=== PATIENT | male | born 1960 | race Caucasian/White ===

== ENCOUNTER → 2019-10-25 | Outpatient (CLI) | payer OTHER ==
[~2019-10-25] MED LIST: ADULT LOW DOSE81 MG PO; IBUPROFEN 800800 M1 PO; SIMVASTATIN40 MG PO
== END ==
LOC: CAT 09:49
DX: Z13.6 Encounter for screening for cardiovascular disorders (principal); E78.00 Pure hypercholesterolemia, unspecified; I25.10 Atherosclerotic heart disease of native coronary artery without angina pectoris